=== PATIENT | female | born 1985 | race Two or more races ===

== ENCOUNTER 2016-07-22 10:56 | Emergency (ER) | payer MEDICAID ==
[2016-07-22 13:32] VITALS: BP 126/86
== END 2016-07-22 13:32 | disposition home or self-care (01) ==
LOC: ED 10:56
DX: J03.90 Acute tonsillitis, unspecified (principal)

== ENCOUNTER 2016-12-17 12:13 | Emergency (ER) | payer MEDICAID ==
[2016-12-17 14:21] LABS: UA SPECIFIC GRAVITY <=1.005 (1.005-1.035); microscopic required? YES; urine erythrocyte TRACE (NEGATIVE)
[2016-12-17 15:50] VITALS: BP 135/95
== END 2016-12-17 15:50 | disposition home or self-care (01) ==
LOC: ED 12:13
PROVIDERS: Emergency Medicine
DX: M54.5 Low back pain (principal); N39.0 Urinary tract infection, site not specified